=== PATIENT | female | born 1960 | race Caucasian/White ===

== ENCOUNTER → 2016-09-01 | Outpatient (CLI) | payer BC ==
[~2016-09-01] MED LIST: LEVOTHYROXINE50 MCG; LIPITOR
--- NOTE | ~2016-09-01 | BD1 ---
[facility] A Service of [facility] & [facility] RADIOLOGY TEXT RESULTS PATIENT: NASIR MOURA LOCATION: [facility] : 62 UNIT #: [id number] AGE: [address]: Kiera Carmen MD SEX: F ORDER DR: [id number] [address] [address] [id number] O MR#: [id number] Acc #: [id number] NAME: NASIR MOURA : 1960 SEX: F STUDY DATE/TIME: 09/01/2016 8:44 UNIT: [facility] ROOM: STUDY DESCRIPTION: BD Dexa Bone Dens 1+ Site Attending Physician: Kiera Carmen M.D. Referring Physician: Kiera Carmen M.D. Ordering Physician: Kiera Carmen M.D. Primary Care Physician: Kiera Carmen M.D. MEDICAL IMAGING REPORT This report is preliminary unless electronic signature is present. EXAM Bone density spine head 09/01/2016 HISTORY Menopause. On Levothyroxine. FINDINGS Bone density scanning performed in the upper 4 lumbar vertebral segments in both proximal femurs in this [age]-year-old 165-pound female. Most recent study for comparison 08/26/2012. L1-L4: Bone density 1.199 g/cm2 for T-score 0.2 standard deviations above mean for a reference population normal young individuals and a Z-score 0.6 standard deviations above mean for age-match population. Compared to 08/26/2012, there has been an 11% decrease in total bone mineral density in the upper 4 lumbar vertebral segments. This is statistically significant. LEFT FEMUR: Total bone density 1.004 g/cm2 for a T-score 0 standard deviation from mean for a reference population normal young individuals and Z-score 0.4 standard deviation above the mean for age-matched population. Left femoral neck bone mineral density 0.968 g/cm2 for T-score 0.5 standard deviations below mean for a reference population normal young individuals and a Z-score 0.3 standard deviations above the mean for age-match population. Using total bone mineral density as trending value in this region, there has been a statistically significant 5.9% decrease in proximal left femoral bone density compared to 08/26/2012. RIGHT PROXIMAL FEMUR: Total bone mineral density 0.993 g/cm2 for T-score 0.1 standard deviations below mean for a reference population normal young individuals and Z-score 0.3 standard deviation above the mean for age-match population. Right femoral neck bone density 0.973 g/cm2 for T-score 0.5 standard deviations below mean for a reference population [facility] A Service of [facility] RADIOLOGY TEXT RESULTS PATIENT: NASIR MOURA LOCATION: [facility] : 62 UNIT #: [id number] AGE: [address]: Kiera Carmen MD SEX: F ORDER DR: normal young individuals and Z-score 0.3 standard deviations above the mean for age-match population. Using total bone mineral density as trending value in this region, there has been statistically significant 5% decrease in proximal right femoral bone density compared to 08/26/2012. IMPRESSION 1. Normal bone mineral density in the upper 4 lumbar vertebral segments overall and in the bilateral proximal femurs. 2. Statistically significant decreases in bone mineral density in the upper 4 lumbar vertebral segments overall and in both proximal femurs compared to 08/26/2012. See details in body of report above. Please correlate with the patient's clinical status. Continued surveillance is recommended. Dictated by... Jose Antonio Lynch M.D. THIS IS AN ELECTRONICALLY VERIFIED REPORT Jose Antonio Lynch M.D. at 09/02/2016 2:18 PM BRONSON/megan TD: 09/02/2016 10:13 JOB #: [id number] MEDICAL IMAGING REPORT Page 1 of 1
--- NOTE | ~2016-09-01 | MY11 ---
[facility] A Service of [facility] RADIOLOGY TEXT RESULTS PATIENT: NASIR MOURA LOCATION: [facility] : 62 UNIT #: [id number] AGE: [address]: Kiera Carmen MD SEX: F ORDER DR: [id number] [address] [address] [id number] O MR#: [id number] Acc #: [id number] NAME: NASIR MOURA : 1960 SEX: F STUDY DATE/TIME: 09/01/2016 8:54 UNIT: [facility] ROOM: STUDY DESCRIPTION: MY Mammogram Screening Dig [place] Attending Physician: Kiera Carmen M.D. Referring Physician: Kiera Carmen M.D. Ordering Physician: Kiera Carmen M.D. Primary Care Physician: Kiera Carmen M.D. MEDICAL IMAGING REPORT This report is preliminary unless electronic signature is present. EXAM Digital screening mammogram 09/01/2016 [facility] HISTORY 55-year-old woman no risk elevation. Annual screening. COMPARISON Mammograms date to 02/06/2003 with most recent 04/01/2015. FINDINGS Digital imaging of each breast was completed utilizing screening protocol. Review includes FDA-approved CAD device. Breast parenchyma is moderately dense with a generalized nodular pattern. Subareolar duct prominence is noted in each breast. There is no interval occurring mass. I see no suspicious microcalcifications and no architectural deformity. IMPRESSION Stable benign mammogram. Annual screening recommended. Patients over the age of 40 are entered into a reminder system with target due date for the next mammogram. BIRADS: 2 Benign finding. Dictated by... Bar Thomas M.D. THIS IS AN ELECTRONICALLY VERIFIED REPORT Bar Thomas M.D. at 09/01/2016 2:43 PM ELIESER/jose angel TD: 09/01/2016 14:00 JOB #: [id number] [facility] A Service of [facility] RADIOLOGY TEXT RESULTS PATIENT: NASIR MOURA [id number] 62 UNIT #: [id number] AGE: [address]: Kiera Carmen MD SEX: F ORDER DR: MEDICAL IMAGING REPORT Page 1 of 1
== END | disposition home or self-care (01) ==
LOC: SMAM 08:17
DX: Z12.31 Encounter for screening mammogram for malignant neoplasm of breast (principal); Z13.820 Encounter for screening for osteoporosis; Z78.0 Asymptomatic menopausal state; R92.2 Inconclusive mammogram
CPT/HCPCS: 77080; G0202